=== PATIENT | female | born 1945 | race Caucasian/White ===

== ENCOUNTER 2018-03-13 12:38 | Outpatient (CLI) | payer MEDICARE, BC ==
--- NOTE | 2018-03-13 13:39 | MRI ---
MRI LUMBAR SPINE WITHOUT CONTRAST: Comparison: 06-08-16 History: Low back pain with right sided sciatica for 6 years. Technique: Multiplanar, multisequence MRI images were obtained of the lumbar spine without contrast. FINDINGS: Mild disc desiccation is seen in the lower lumbosacral spine. The vertebral bodies and intervertebral discs demonstrate normal height and alignment without acute fracture or subluxation. The conus medul leonidas terminates normally at L2. The prevertebral and paraspinal soft tissues are unremarkable. T12-L1: Unremarkable. L1-2: Unremarkable. L2-3: No significant posterior bulges or protrusion. Mild bilateral posterior facet arthrosis. No tab tral canal stenosis. No neural foraminal stenosis. L3-4: A small disc osteophyte complex is seen. Mild bilateral posterior facet arthrosis. Mild central canal stenosis. Mild bilateral neural foraminal stenosis. L4-5: A small disc osteophyte complex is seen. Mild bilateral posterior facet arthrosis. No central c anal stenosis. Mild bilateral neural foraminal stenosis. L5-S1: No significant posterior bulge or protrusion. Mild to moderate bilateral posterior facet arthr osis. No central canal stenosis. Mild bilateral neural foraminal stenosis. IMPRESSION: Degenerative changes of the lumbar spine as above. When compared to the prior exam, these have not ch anged significantly. POS: ASYA
== END 2018-03-13 12:39 | disposition home or self-care (01) ==
LOC: TBSIIMAG 12:38
PROVIDERS: ATTEND Neurological Surgery
DX: M51.36 Other intervertebral disc degeneration, lumbar region (principal); M47.897 Other spondylosis, lumbosacral region; M47.896 Other spondylosis, lumbar region
CPT/HCPCS: 72148

== ENCOUNTER 2019-03-26 07:03 | Outpatient (CLI) | payer MEDICARE, BC ==
[2019-03-26 07:36] LABS: #Basophils 0.1 thou/uL (0.0-0.2); #Eosinphils 0.2 thou/uL (0.0-0.7); #Lymphocytes 1.7 thou/uL (1.20-3.40); #Monocytes 0.7 thou/uL (0.11-0.59); #Neutrophils 3.8 thou/uL (1.40-6.50); %Basophils 1.9 % (0.0-1.0); %Eosinophils 2.7 % (0.0-10.0); %Lymphocytes 26.4 % (21.0-51.0); %Monocytes 10.8 % (0.0-10.0); %Neutrophils 58.2 % (42.0-75.0); Hemoglobin 14.3 g/dL (12.0-16.0); Mean Corpuscular HGB CONC 33.1 g/dL (32.0-36.0); Mean Corpuscular Hemoglobin 30.4 pg (27.0-31.0); Mean Corpuscular Volume 91.8 fL (78.0-98.0); Mean Platelet Volume 9.4 fL (7.4-10.4); Platelet Count 206 thou/uL (130-400); RBC Distribution Width 12.5 % (11.5-14.5); Red Blood Cell (RBC) Count 4.71 mill/uL (4.20-5.40); White Blood Cell (WBC) Count 6.5 thou/uL (4.8-10.8)
[2019-03-26 07:44] LABS: ALT (SGPT) 15 U/L (8-55); AST (SGOT) 18 U/L (5-34); Alkaline Phosphatase 76 U/L (40-150); Anion Gap 10 mmol/L (10-20); BUN (Urea Nitrogen) 17 mg/dL (9.8-20.1); Bilirubin, Total 0.6 mg/dL (0.2-1.2); Calc. Creatinine Clearance 0 mL/min (70-130); Calcium 9.3 mg/dL (7.8-10.44); Carbon Dioxide 24 mmol/L (23-31); Chloride 110 mmol/L (98-107); Estimated GFR-MDRD 68; Globulin 3.1 g/dL (2.4-3.5); Glucose 98 mg/dL (83-110); Potassium 4.1 mmol/L (3.5-5.1); Protein, Total 7.1 g/dL (6.0-8.3); Sodium 140 mmol/L (136-145)
--- NOTE | 2019-03-26 08:39 | ULT ---
RIGHT UPPER QUADRANT ULTRASOUND: History: Right upper quadrant pain. Acid reflex. Heartburn after every meal. Comparison: None. Technique: Utilizing a multihertz transducer, sonographic imaging of the right upper quadrant was per formed in longitudinal and transverse planes. FINDINGS: The visualized pancreatic parenchyma has a normal echotexture. The hepatic parenchyma has a normal echotexture. No hepatic masses or intrahepatic biliary dilatation . The contour of the hepatic margin is maintained. Visualized IVC is unremarkable. Right kidney has a normal cortical echotexture. No hydronephrosis. Right kidney measures 10.4 x 5.7 x 5.5 cm. No sonographic evidence of cholelithiasis, gallbladder wall thickening or pericholecystic fluid. Nega tive Raines's sign. Common bile diameter is 0.5 cm. Main portal vein is patent. Appropriate direction of flow. IMPRESSION: Unremarkable right upper quadrant ultrasound. POS: OFF
== END 2019-03-26 07:04 | disposition home or self-care (01) ==
LOC: SCSULT 07:03
PROVIDERS: ATTEND Internal Medicine Gastroenterology
DX: R10.11 Right upper quadrant pain (principal)
CPT/HCPCS: 36415; 76705; 80053; 85025

== ENCOUNTER 2019-04-08 12:56 | Outpatient (CLI) | payer MEDICARE, BC ==
--- NOTE | 2019-04-08 14:36 | CT ---
CT ABDOMEN AND PELVIS WITH IV CONTRAST: 04/08/19 Oral contrast was also administered. INDICATIONS: Epigastric pain. No comparison exam. FINDINGS: Lung bases clear. Liver, spleen, and pancreas unremarkable. Adrenal glands appear normal. Kidneys unremarkable. Stomach and duodenum unremarkable. Small bowel loops appear normal caliber. Colon unremarkable with stool and gas throughout the colon. Aorta shows mild atherosclerotic change without aneurysm. No adenopathy. Images through the pelvis sh ow evidence of hysterectomy. There is evidence of a small amount of fluid in the deep pelvis on the right adjacent to the rectum. Osseous structures unremarkable. IMPRESSION: Evidence of a small amount of fluid in the deep pelvis on the right. Patient appears to be post hyste rectomy. Otherwise, no acute process identified. POS: ASYA
== END 2019-04-08 12:57 | disposition home or self-care (01) ==
LOC: SCSCT 12:56
PROVIDERS: ATTEND Physician Assistant Medical
DX: R10.13 Epigastric pain (principal)
CPT/HCPCS: 74177

== ENCOUNTER 2019-09-01 13:33 | Outpatient (CLI) | payer MEDICARE, BC ==
--- NOTE | 2019-09-01 14:38 | MRI ---
EXAM: MRI Lumbar Spine WO Con PROVIDED CLINICAL HISTORY: Back pain COMPARISON: 03/13/2018 FINDINGS: 5 lumbar vertebral bodies are again seen. Lumbar alignment remains normal. Vertebral body heights are preserved. No focal concerning regional marrow signal abnormality is evident. The conus medullaris terminates at an appropriate level and is normal in signal. The visualized extraspinal soft tissues a ppear unremarkable. At L1-2, there is no significant central canal or foraminal narrowing apparent. At L2-3, there is no significant central canal or foraminal narrowing apparent. At L3-4, there is mild bilateral facet arthritis without significant central canal or foraminal narro wing apparent. At L4-5, there is moderate-severe bilateral facet arthritis without significant central canal or fora loy narrowing apparent. At L5-S1, there is moderate-severe bilateral facet arthritis without significant central canal or for aminal narrowing apparent. IMPRESSION: Lower lumbar spine facet degeneration without evidence for significant central canal or foraminal caleb rowing.
== END 2019-09-01 13:34 | disposition home or self-care (01) ==
LOC: SCSMRI 13:33
PROVIDERS: ATTEND Family Medicine
DX: M51.16 Intervertebral disc disorders with radiculopathy, lumbar region (principal); M47.26 Other spondylosis with radiculopathy, lumbar region
CPT/HCPCS: 72148